=== PATIENT | male | born 1970 | race Caucasian/White ===

== ENCOUNTER 2019-04-22 19:37 | Emergency (ER) | payer SELFPAY ==
[2019-04-22 19:52] VITALS: BP 204/100; PULSE 70; RESP 13; TEMP 36.8; O2SAT 98
--- NOTE | 2019-04-22 19:58 | PC.NURSE ---
Pt here because he checked his bp and it was over 200 systolic. Pts pcp has been changing his medication for htn. Pt denies any SOB or pain upon arrival. Pt states I couldn't tell my bp was high until I checked it
--- NOTE | 2019-04-22 20:16 | ED_ITS ---
HPI - General Adult General Chief complaint: Hypertension Stated complaint: states blood pressure is really high Time Seen by Provider: 04/22/19 19:57 Source: patient Mode of arrival: ambulatory Limitations: no limitations History of Present Illness HPI narrative: Patient is a 48-year-old male who yesterday was switched from his atenolol and losartan/hydrochlorothiazide medication to nicardipine and hydralazine. He has only been on these medications for 24 hours. He stated that he actually was feeling better throughout today and this evening he took his blood pressure with a systolic above 200 and diastolic above 100. He denies any chest pain or shortness of breath or vision changes or headaches or swelling in his lower extremities. He has a follow-up with his primary doctor next Wednesday. He came in because his blood pressure was elevated. Related Data Previous Rx's Medication Instructions Recorded losartan 100 1 tab PO QDAY #90 tab 09/06/18 mg-hydrochlorothiazide 12.5 mg tablet warfarin 3 mg tablet 3 mg PO QDAY #120 tab 12/12/18 atenolol 25 mg tablet 25 mg PO QDAY #30 tab 01/02/19 Allergies Allergy/AdvReac Type Severity Reaction Status Date / Time Penicillins Allergy Unknown UNKNOWN Verified 02/23/19 19:28 Review of Systems Constitutional Denies fatigue, Denies fever(s) and Denies headache(s) Eyes Denies change in vision ENT Ears, Nose, Mouth, and Throat: Denies headache(s) Cardiovascular Denies chest pain, Denies edema, Denies palpitations, Denies dyspnea and Denies dyspnea on exertion Respiratory Denies dyspnea and Denies dyspnea on exertion Gastrointestinal Gastrointestinal: Denies abdominal pain, Denies nausea and Denies vomiting Genitourinary Denies dysuria Musculoskeletal Denies myalgias and Denies arthralgias Integumentary/Breasts Denies rash Neurologic Denies behavioral changes and Denies headache(s) Psychiatric Denies behavioral changes Endocrine Denies fatigue and Denies palpitations Hematologic/Lymphatic Comments: On Coumadin Allergic/Immunologic Denies urticaria [facility] Medical History Hypertension (Acute) Pulmonary embolism (Acute) Social History Smoking Status: Never smoker alcohol intake: current substance use type: does not use Social History Smoking Status: Never smoker alcohol intake: current substance use type: does not use Exam Initial Vital Signs Initial Vital Signs: Vital Signs Temperature 98.3 F 04/22/19 19:52 Pulse Rate 70 04/22/19 19:52 Respiratory Rate 13 04/22/19 19:52 Blood Pressure 204/100 H 04/22/19 19:52 Pulse Oximetry 98 04/22/19 19:52 Const General: cooperative, comfortable, well developed, well groomed and No acute distress Orientation: alert, awake and oriented x3 HENMT Head: normal to inspection and normocephalic Resp Effort & Inspection: normal respiratory effort Auscultation: clear to auscultation bilaterally Cardio Rate: regular rate Rhythm: regular rhythm Skin Lesions: no lesions Rashes: no rashes Neuro General: alert and awake Cognition: normal cognition Speech: speech normal Gait: normal gait Motor: muscle tone normal throughout Extrem General: normal to inspection and capillary refill normal Psych Appearance: grossly normal and well kempt Course Vital Signs - 8 hr 04/22/19 19:52 04/22/19 20:33 Temperature 98.3 F Pulse Rate 70 65 Respiratory Rate 13 Blood Pressure 204/100 H 211/105 H Pulse Oximetry 98 99 Medical Decision Making MDM Narrative Medical decision making narrative: Patient is completely asymptomatic. He is hypertensive however had a complete switch of his medications within the past 36 hours and has not taken his calcium channel mari today because he normally takes them at night. No symptoms consistent with ACS or CHF or ICH. Will hold on further workup. We did discuss the use of continuing his current medication and to check his blood pressure at home tomorrow. Informed him he could take an extra dose of his losartan/hydrochlorothiazide if his blood pressures were elevated. He does have a follow-up appointment on Wednesday which is just 2 days away with his primary doctor. We discussed specific return precautions. He expressed understanding and agreement with plan. Discharge Plan Departure Patient Disposition: Home Clinical Impression: Hypertension Qualifiers: Hypertension type: unspecified Qualified Code(s): I10 - Essential (primary) hypertension Discharge Date/Time: 04/22/19 20:35 Interventions: ED Discharge Assessment Last Done: 04/22/19 20:33 Instructions: DI for High Blood Pressure Activity Restrictions/Additional Instructions: I would continue the medications that you started yesterday as directed. You can add the losartan/hydrochlorothiazide medicine that you were taking once a day like we discussed. Take your blood pressure at home like we discussed. Keep your follow-up appointment with your primary provider on Wednesday. Return to the emergency department for any new symptoms to include chest pain, shortness of breath, headache, vision changes or any other concerning symptoms. Prescriptions: No Action losartan-hydrochlorothiazide [Hyzaar] 100-12.5 mg tablet 1 tab PO QDAY Qty: 90 RF: 1 warfarin [Coumadin] 3 mg tablet 3 mg PO QDAY Qty: 120 RF: 3 atenolol 25 mg tablet 25 mg PO QDAY Qty: 30 RF: 2 Referrals: Jerome Bruce MD [Primary Care Provider] -
[2019-04-22 20:33] VITALS: BP 211/105; PULSE 65; O2SAT 99
== END 2019-04-22 20:35 | disposition home or self-care (01) ==
PROVIDERS: Emergency Provider Emergency Medicine; PCP Family Medicine
DX: I10 Essential (primary) hypertension (principal)
CPT/HCPCS: 99282

== ENCOUNTER 2020-08-28 17:50 | Emergency (ER) | payer OTHER, SELFPAY ==
[2020-08-28] VITALS (8 sets, daily range): BP systolic 178–200; BP diastolic 62–104; PULSE 67–75; RESP 16; TEMP 36.9; O2SAT 97–99; BMI 38.9
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
== END 2020-08-28 19:42 | disposition home or self-care (01) ==
PROVIDERS: Emergency Provider Emergency Medicine; PCP Family Medicine
DX: S60.511A Abrasion of right hand, initial encounter (principal); I10 Essential (primary) hypertension; I26.99 Other pulmonary embolism without acute cor pulmonale; Z79.01 Long term (current) use of anticoagulants; V89.2XXA Person injured in unspecified motor-vehicle accident, traffic, initial encounter
CPT/HCPCS: 70450; 99284

== ENCOUNTER 2020-09-02 09:59 | Emergency (ER) | payer OTHER, SELFPAY ==
[2020-09-02] VITALS (8 sets, daily range): BP systolic 139–156; BP diastolic 69–85; PULSE 60–65; RESP 12–21; TEMP 36.7; O2SAT 89–99; BMI 38.9
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
[2020-09-02 10:28] LABS: Add Manual Diff / Slide Review NO; Basophils Absolute Auto 100 /uL (0-100); Basophils Percent Auto 1.4 % (0-2); Eosinophils Absolute Auto 100 /uL (0-450); Eosinophils Percent Auto 1.4 % (2-4); Hematocrit 42.5 % (41-53); Hemoglobin 14.5 g/dL (13.5-17.5); Lymphocytes Absolute Auto 2600 /uL (1100-4500); Lymphocytes Percent Auto 29.6 % (25-40); Mean Corpuscular HGB Conc 34.1 % (30-36); Mean Corpuscular Hemoglobin 30.5 PG (26-34); Mean Corpuscular Volume 89.3 fL (80-100); Monocytes Absolute Auto 900 /uL (0-900); Monocytes Percent Auto 10.3 % (3-14); Neutrophils Absolute Auto 5100 /uL (1500-7000); Neutrophils Percent Auto 57.3 % (50-75); Platelet Count 220 X10^3/uL (150-400); Red Blood Cell Count 4.76 X10^6/uL (4.5-5.9); Red Cell Distribution Width 13.8 % (11.6-14.8); White Blood Cell Count 8.9 X10^3/uL (4.5-11.0)
[2020-09-02 10:36] LABS: Alanine Aminotransferase 27 IU/L (<50); Albumin 4.3 g/dL (3.5-5.0); Albumin Globulin Ratio 1.3 (1.0-2.8); Alkaline Phosphatase 84 U/L (38-126); Aspartate Aminotransferase 25 IU/L (17-59); BUN Creatinine Ratio 19.5 (6-22); Bilirubin Total 0.6 mg/dL (0.2-1.3); Blood Urea Nitrogen 17 mg/dL (9-20); Calcium 9.6 mg/dL (8.4-10.2); Carbon Dioxide 26 mmol/L (22-32); Chloride 105 mmol/L (98-107); Creatine Kinase 198 U/L (55-170); Estimated Glomerular Filt Rate > 60.0 mL/min (>60); Ethanol (ETOH) < 10 mg/dL; Globulin 3.4 g/dL (1.7-4.1); Glucose 205 mg/dL (70-100); HEMOLYSIS < 15 (0-50); Lipase 184 U/L (23-300); Potassium 4.1 mmol/L (3.4-5.1); Sodium 136 mmol/L (137-145); Total Protein 7.7 g/dL (6.3-8.2)
[2020-09-02 10:46] LABS: INR 2.8 (0.9-1.3); Prothrombin Time 31.8 SECONDS (10.1-12.7)
[2020-09-02 10:47] LABS: Troponin I < 0.012 ng/mL (0.01-0.034)
[2020-09-02 10:49] LABS: PTT Partial Thromboplastin Tim 49 SECONDS (26.4-36.2)
[2020-09-02 10:50] LABS: CKMB % Relative Index 0.6 % (1.5-5.0); Creatine Kinase MB 1.26 ng/mL (<2.37)
== END 2020-09-02 12:17 | disposition home or self-care (01) ==
PROVIDERS: Emergency Provider Emergency Medicine; PCP Family Medicine
DX: S06.0X0A Concussion without loss of consciousness, initial encounter (principal); R11.0 Nausea; M25.512 Pain in left shoulder; V89.2XXA Person injured in unspecified motor-vehicle accident, traffic, initial encounter; I26.99 Other pulmonary embolism without acute cor pulmonale; Z79.01 Long term (current) use of anticoagulants; I10 Essential (primary) hypertension; R00.1 Bradycardia, unspecified; R51.9 Headache, unspecified
CPT/HCPCS: 36415; 70450; 71045; 80053; 80320; 81003; 82550; 82553; 82962; 83690; 84484; 85025; 85610; 85730; 93005; 99284